=== PATIENT | female | born 1995 | race Caucasian/White ===

== ENCOUNTER 2016-06-18 23:55 | Emergency (ER) | payer OTHER ==
[~2016-06-18] VITALS: Ht 160 cm; Wt 87.0 kg
[2016-06-18 23:57] VITALS: TEMP 36.9; Ht 160 cm; Wt 87.0 kg
[2016-06-19] MEDS ORDERED: KETOROLAC TROMETHAMINE 60 MG/2 ML VIAL IM STA (00:29)
[2016-06-19] MEDS ORDERED: CYCLOBENZAPRINE HCL 10 MG TAB PO STA (00:29)
[2016-06-19] MEDS ORDERED: DEXAMETHASONE SOD INJ 10 MG/ML VIAL IM ONE (00:30)
[2016-06-19] MEDS ORDERED: TRAMADOL HCL 50 MG HOME PACK PO ONE (02:00)
[2016-06-19] MEDS ORDERED: FLEXERIL HOME PACK 10 MG VIAL PO ONE (02:00)
[2016-06-19] MEDS ORDERED: CYCL10TA6 PO (02:07)
[2016-06-19] MEDS ORDERED: PRED50TA PO (02:07)
[2016-06-19] MEDS ORDERED: TRAM-10 PO (02:07)
--- NOTE | 2016-06-19 02:08 | EMERGENCY ROOM VISIT NOTE ---
ED Visit Note First contact with patient: 00:06 Chief Complaint: Back Pain - Spasms History of Present Illness: Patient is a 21-year-old female who presents to the emergency Department this morning for evaluation of her low back pain and spasm. She reports that she had similar symptoms a few months ago. She was seen in her primary care provider's office and provided a muscle relaxer as well as ibuprofen and tramadol with mild relief of symptoms. She has not had imaging studies performed of this point. There is no falls or injuries to the spine. The patient reports increasing pain today. She denies any numbness or tingling into the distal extremity's. She denies any loss of control bowel/ bladder saddle anesthesia. The patient has tried nothing [id number] for her symptoms. She rates her current discomfort as a 10/10. Patient denies any fevers, chills, abdominal pain, hematuria, or dysuria. Medications: No current medications. Allergies: Penicillin PMH: No pertinent past history. SHx: Patient is a 21-year-old female who lives with family. ROS: All pertinent positive and negative review of systems are appropriately documented in the History of Present Illness. Physical Exam: VITAL SIGNS - Vital signs and nursing notes were reviewed. GENERAL - 21-year-old female appearing her stated age and in noticeable discomfort throughout the exam. NECK - FROM of the cervical spine. ABDOMEN - Abdominal contour obese without pulsations or visible masses. BS normoactive all four quadrants. No tenderness, palpable masses, hepatosplenomegaly, or ascites noted. MUSCULOSKELETAL - ROM of the lumbar spine region was limited secondary to patient discomfort. Pt was laying on the exam table. Pt made guarded movements when asked to change position. No step-off deformities were palpated down the thoracolumbar spines. Moderate Tenderness to Palpation experienced at the level of the LEFT sided lumbar paraspinal muscle distribution. No reproducible tenderness to palpation across the iliac spine. NEUROLOGIC - REFLEXES: +3/4 patellar reflexes B/L. SENSORY: Spinothalamic tract was found to be intact with ability to discriminate sharp versus dull sensation at the level of hip joint down do the great toe. No sensory defects of the dorsal column were appreciated utilizing light touch for evaluation. CEREBELLAR: Pt able to perform rapid alternating movements of the feet. EXTREMITIES - Range of Motion - No tremors, ticks, or fasciculations of the lower extremities noticed during inspection. Pt had +5/5 strength appreciated bilaterally in the lower extremities against examiner's resistance. VASCULAR - Capillary refill of the great toe was brisk. No mottling or blanching of the extremities present. +3/5 dorsalis pedis pulses palpated bilaterally. IMAGING: X-ray of the lumbar spine was obtained and reviewed by myself. No acute fractures, dislocations, or subluxations appreciated per my interpretation. Radiologist's impression unavailable at the time of dictation. ED Course: Patient was seen and evaluated by myself. The patient was treated with 60 mg Toradol, 10 mg Decadron, and 10 mg Flexeril for comfort. X-ray lumbar spine was obtained. Imaging results above. Imaging results reviewed with the patient who acknowledges understand. The patient was provided a prescription for Ultram, Flexeril, and prednisone to be used for the next several days. She' ll follow-up with her primary care provider from today's visit. She will return for any changing or worsening symptoms. Patient discharged home in good condition. In the evaluation and treatment of this patient the following differential diagnoses were considered: Cauda equina syndrome, discitis, HNP, sciatica, epidural abscess, psoas abscess, musculoskeletal strain, lumbar fracture, lumbar dislocation, lumbar subluxation, spondylolisthesis, spondylosis, or compression fracture. Impression: Lumbar Paraspinal Muscle Spasm Discharge Instructions: You have been treated in the Emergency Department for Back Pain. You have been prescribed Ultram to be used for pain control. This is a narcotic medication. You cannot drive or consume alcohol while on this medicine. This medicine should only be used for pain that cannot be controlled with over-the- counter pain medicines. You have been prescribed Flexeril (cyclobenzaprine) 1-2 tabs orally, three times per day. Do NOT exceed 30 mg (6 tabs) per day. Take your first dose at bedtime as it can make you drowsy. Always take all medications as prescribed. You have been prescribed Prednisone 50 mg to be taken orally once a day for the next 4 days. This is an anti-inflammatory medicine to be used to help minimize your symptoms. You should take the COMPLETE course of the medication. For pain control, you can use the following elqw-ogx-flghunu medicines (if >12 yo): - Regular strength (325mg/tab) Tylenol (acetaminophen) 2 tabs every 4-6 hours as needed. Do not exceed 12 tablets in a 24 hour period. Avoid taking more than 4 grams (4000 mg) of Tylenol per day. This includes any other sources of acetaminophen you may take on a regular basis. - Regular strength (200 mg/tab) Advil (ibuprofen) 1-2 tabs every 4-6 hours as needed. Do not exceed a dose of 3200 mg per day. If this is an acute injury, ice can be applied to the area of pain for the first 3 days to help decrease pain and inflammation. After the first 3 days, a heating pad can be used over the area for continued soothing relief. You should schedule a follow-up appointment in 2-3 days with your Primary Care Provider for further evaluation and treatment of your back pain. Return to the Emergency Department if your current symptoms worsen despite treatment course outlined above, or if you develop any of the following symptoms : intractable pain despite aforementioned treatment course, loss of control of your bowel or bladder, numbness or tingling in your groin, or development of a fever. Current/Historical Medications Scheduled Cyclobenzaprine Hcl (Flexeril), 10 MG PO TID Prednisone (Prednisone), 50 MG PO DAILY Scheduled PRN Tramadol (Ultram), 1-2 TAB PO Q4H PRN for Pain Allergies Uncoded Allergies: PENICILLIN (Allergy, Unknown, 11/02/02) Vital Signs Date Time Temp Pulse Resp B/P Pulse Ox O2 Delivery O2 Flow Rate FiO2 06/19/16 02:09 79 20 131/89 98 06/19/16 01:39 79 20 131/89 98 Room Air 06/18/16 23:57 36.9 107 16 133/100 100 Room Air Medications Administered Medications (Trade) Dose Ordered Sig/Sarah Route Start Time Stop Time Status Last Admin Dose Admin Cyclobenzaprine HCl (Flexeril Tab) 10 mg NOW STAT PO 06/19/16 00:29 06/19/16 00:33 DC 06/19/16 00:40 10 MG Ketorolac Tromethamine (Toradol Inj) 60 mg NOW STAT IM 06/19/16 00:29 06/19/16 00:33 DC 06/19/16 00:41 60 MG Dexamethasone Sodium Phosphate (Decadron Inj) 10 mg NOW ONCE IM 06/19/16 00:30 06/19/16 00:33 DC 06/19/16 00:41 10 MG Cyclobenzaprine HCl (FLEXERIL 10MG Home Pack) 1 homepack UD ONCE PO 06/19/16 02:00 06/19/16 02:01 DC 06/19/16 02:00 1 HOMEPACK Tramadol HCl (Ultram Home Pack) 1 homepack UD ONCE PO 06/19/16 02:00 06/19/16 02:01 DC 06/19/16 02:00 1 HOMEPACK Departure Information Impression Primary Impression: Lumbar paraspinal muscle spasm Dispostion Home / Self-Care Condition GOOD Prescriptions Prednisone (Prednisone) 50 Mg Tab 50 MG PO DAILY for 4 Days, #4 TAB Prov: Rom Dorantes PA-C 06/19/16 Tramadol (Ultram) 50 Mg Tab 1-2 TAB PO Q4H Y for Pain, #16 TAB For Initial Treatment Prov: Rom Dorantes PA-C 06/19/16 Cyclobenzaprine Hcl (FLEXERIL) 10 Mg Tab 10 MG PO TID for 5 Days, #15 TAB Prov: Rom Dorantes PA-C 06/19/16 Referrals No Doctor, Assigned (PCP) Patient Instructions Back Pain - [facility], [facility] Additional Instructions You have been treated in the Emergency Department for Back Pain. You have been prescribed Ultram to be used for pain control. This is a narcotic medication. You cannot drive or consume alcohol while on this medicine. This medicine should only be used for pain that cannot be controlled with over-the- counter pain medicines. You have been prescribed Flexeril (cyclobenzaprine) 1-2 tabs orally, three times per day. Do NOT exceed 30 mg (6 tabs) per day. Take your first dose at bedtime as it can make you drowsy. Always take all medications as prescribed. You have been prescribed Prednisone 50 mg to be taken orally once a day for the next 4 days. This is an anti-inflammatory medicine to be used to help minimize your symptoms. You should take the COMPLETE course of the medication. For pain control, you can use the following thqy-hbh-zitbvnx medicines (if >12 yo): - Regular strength (325mg/tab) Tylenol (acetaminophen) 2 tabs every 4-6 hours as needed. Do not exceed 12 tablets in a 24 hour period. Avoid taking more than 4 grams (4000 mg) of Tylenol per day. This includes any other sources of acetaminophen you may take on a regular basis. - Regular strength (200 mg/tab) Advil (ibuprofen) 1-2 tabs every 4-6 hours as needed. Do not exceed a dose of 3200 mg per day. If this is an acute injury, ice can be applied to the area of pain for the first 3 days to help decrease pain and inflammation. After the first 3 days, a heating pad can be used over the area for continued soothing relief. You should schedule a follow-up appointment in 2-3 days with your Primary Care Provider for further evaluation and treatment of your back pain. Return to the Emergency Department if your current symptoms worsen despite treatment course outlined above, or if you develop any of the following symptoms : intractable pain despite aforementioned treatment course, loss of control of your bowel or bladder, numbness or tingling in your groin, or development of a fever.
[2016-06-19 02:09] VITALS: BP 131/89; PULSE 79; O2SAT 98
--- NOTE | 2016-06-19 08:14 | DIAGNOSTIC IMAGING REPORT ---
LUMBAR SPINE 5 VIEWS CLINICAL HISTORY: Low back pain of several months duration. FINDINGS: 5 views of the lumbar spine are obtained. No prior studies are available for comparison at the time of dictation. The skeletal structures are well mineralized. There is no radiographic evidence of fracture or malalignment. Vertebral body height and alignment are maintained. There is mild straightening of the lumbar lordosis. The transverse and spinous processes are intact. There is no evidence of spondylolysis. The intervertebral disc spaces are well-maintained. The visualized bony pelvis appears intact. There is a nonobstructed abdominal bowel gas pattern. There is moderate colonic fecal retention. IMPRESSION: 1. Unremarkable radiographic evaluation of the lumbosacral spine. 2. Moderate constipation. Electronically signed by: Blaise Millard M.D. 06/19/2016 8:13 AM Dictated Date/Time: 06/19/2016 8:12 AM
== END 2016-06-19 02:09 | disposition home or self-care (01) ==
LOC: C.EDB 23:56 → C.EDA 06-19 02:09
DX: M62.830 Muscle spasm of back (principal)

== ENCOUNTER 2016-12-02 21:40 | Emergency (ER) | payer OTHER ==
[~2016-12-02] VITALS: Ht 160 cm; Wt 90.4 kg
[~2016-12-02 21:40] MED LIST: TRAM-10 PO
[2016-12-02 21:42] VITALS: TEMP 36.7; Ht 160 cm; Wt 90.4 kg
[2016-12-02 22:33] LABS: URINE APPEARANCE CLOUDY (CLEAR); URINE BILIRUBIN NEG (NEG); URINE COLOR YELLOW; URINE EPITHELIAL CELL AUTO >30 /lpf (0-5); URINE NITRITE POS (NEG); URINE PH 6.5 (4.5-7.5); URINE SPECIFIC GRAVITY 1.028 (1.000-1.030); UROBILINOGEN NEG (NEG); ZZUR CULT IF INDIC CLEAN CATCH YES
[2016-12-02 22:34] LABS: MANUAL MICROSCOPIC REQUIRED? NO; REVIEW REQ? YES
[2016-12-02 22:37] LABS: BENZODIAZEPINE, URINE NEG (NEG); COCAINE,URINE NEG (NEG); PHENCYCLIDINE, URINE NEG (NEG)
[2016-12-02 22:53] LABS: BASO % 0.1 %; BASO ABS # 0.01 K/uL (0-0.2); COMPLETE YES; EOS % 0.8 %; HEMATOCRIT 44.9 % (37-47); IG% 0.1 %; LYMPH % 26.4 %; LYMPH ABS # 2.26 K/uL (1.2-3.4); MEAN CELL VOLUME 85.7 fL (80-100); MEAN PLATELET VOLUME 8.6 fL (7.4-10.4); NEUT % 64.6 %; PLATELET COUNT 308 K/uL (130-400); RED BLOOD COUNT 5.24 M/uL (4.2-5.4); WHITE BLOOD COUNT 8.55 K/uL (4.8-10.8)
[2016-12-02 23:16] LABS: BUN/CREATININE RATIO 19.9 (10-20); CALCIUM 8.8 mg/dl (8.5-10.1); CREATININE 0.77 mg/dl (0.60-1.20); POTASSIUM 3.7 mmol/L (3.5-5.1)
[2016-12-02 23:18] LABS: ACETAMINOPHEN < 2 ug/ml (10-30)
[2016-12-02 23:26] LABS: ALB/GLOB RATIO 1.1 (0.9-2); THYROID STIMULATING HORMONE 1.21 uIu/ml (0.300-4.500)
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
[2016-12-03 01:49] VITALS: BP 117/74; PULSE 81; O2SAT 99
[2016-12-08 00:39] LABS: SYNTHETIC CANNABINOIDS QL URIN NEGATIVE (Negative)
== END 2016-12-03 01:50 | disposition home or self-care (01) ==
LOC: C.EDB 21:41 → C.EDA 12-03 01:50
DX: F39 Unspecified mood [affective] disorder (principal); F17.200 Nicotine dependence, unspecified, uncomplicated; Z88.0 Allergy status to penicillin